=== PATIENT | female | born 1965 | race African-American/Black ===

== ENCOUNTER 2020-02-08 10:26 | Inpatient (IN) ==
--- NOTE | 2020-01-25 17:38 | PAT Medication Instructions ---
Medication Instructions Date of Service January 25, 2020 Home Medications atorvastatin 80 mg PO HS levothyroxine 112 mcg PO QAM metformin 500 mg PO QAM DO NOT take the morning of surgery metformin 500 mg PO QAM Take morning of surgery With a small sip of water, OTHERWISE NOTHING TO EAT OR DRINK AFTER MIDNIGHT: levothyroxine 112 mcg PO QAM Take evening before surgery atorvastatin 80 mg PO HS Other Notes If you have any questions please call us at [phone] or [phone] or [phone] or [phone]
--- NOTE | 2020-01-26 09:35 | Anesthesiology Consultation ---
Date of Service January 26, 2020 Assessment & Plan (1) Encounter for pre-operative examination: COVID Status: As of 01/24 nurse assessment, patient denies travel to endemic area (other than living in [facility]), known exposure/sick contacts, symptoms, or testing for coronavirus. Chart Review Chart Review: Acceptable Risk for Surgery and Patient seen in Pre Admission Testing Teaching & Discussion Instructed NPO after midnight before surgery, except medications with 15 cc of w ater. Medication instructions provided according to the PAT guidelines. History Surgery Operation Date: 02/08/20 12:25 Proposed Procedures p L4-S1 Decompression and Fusion, Spinal Cord Monitoring - Yahir Garnica, Height/Weight Height: 5 ft 1 in Weight: 84.1 kg Allergies Allergy/AdvReac Type Severity Reaction Status Date / Time cashew nut Allergy Severe ANAPHYLAXIS Verified 01/25/20 15:19 tree nut Allergy Severe ANAPHYLAXIS Verified 01/25/20 15:19 latex Allergy Mild hives, Verified 01/25/20 15:19 swelling No Known Drug Allergies Allergy Mild . Verified 01/25/20 15:19 Medications Home Medications Medication Instructions Recorded Confirmed Last Taken atorvastatin 80 mg PO HS 01/25/20 01/25/20 Unknown levothyroxine 112 mcg PO QAM 01/25/20 01/25/20 Unknown metformin 500 mg PO QAM 01/25/20 01/25/20 Unknown Past Medical History Medical History Diabetes mellitus, type 2 Hyperlipidemia Hyperthyroidism Exercise / Class Metabolic Activity II 4-5 Yardwork/Stairs/Walk up hill (Denies CP or SOB with 1 FOS) Past Surgical History Surgical History History of ankle surgery left Hx of carpal tunnel repair right Hx of colonoscopy Hx of esophagogastroduodenoscopy Hx of foot surgery right and left tarsal tunnel release and left bunionectomy Past Anesthesia History No Hx of Anesthesia Complications and No Family Hx of Anesthesia Complications History of PONV No Hx of PONV and No Hx of Motion Sickness Social History Smoking Status: Never smoker Do You Dip or Chew Tobacco: No Hx Alcohol Use: Yes alcohol intake frequency: holidays/special occasions only Hx Substance Use: No substance use type: does not use Review of Systems Pt denies any recent chest pain, shortness of breath, palpitations, cough, fever or URI. Physical Exam Vital Signs BP: 123/83 P: 86bpm SPO2: 98% RA T: 98.3 F R: 16 ENMT Mouth: no dental restorations, no chipped teeth and no loose teeth Thyromental Distance: > or= 3.5 Finger Breadths (4) Mallampati Class: II Neck normal visual inspection; neck extension not limited Respiratory normal respiratory effort Auscultation: lungs clear to auscultation bilaterally Cardiovascular Rate/Rhythm: regular rate and regular rhythm Heart Sounds: no murmur Extremities: no edema Testing Laboratory Results 01/26/20 09:43 01/26/20 09:45 PT 10.7 Seconds (9.0-12.0) 01/26/20 09:43 INR 1.0 (0.9-1.1) 01/26/20 09:43 APTT 32.0 Seconds (21.0-31.0) H 01/26/20 09:43 Urine Color Yellow 01/26/20 09:43 Urine Appearance Clear (Clear) 01/26/20 09:43 Urine pH 5.0 (4.5-7.5) 01/26/20 09:43 Ur Specific [place] 1.024 (1.000-1.030) 01/26/20 09:43 Urine Protein Negative (Negative) 01/26/20 09:43 Urine Glucose (UA) Negative (Negative) 01/26/20 09:43 Urine Ketones Negative (Negative) 01/26/20 09:43 Urine Nitrite Negative (Negative) 01/26/20 09:43 Ur Leukocyte Esterase Negative (Negative) 01/26/20 09:43 Urine WBC (Auto) 1-5 /hpf (0-5) 01/26/20 09:43 Urine RBC (Auto) 0-4 /hpf (0-4) 01/26/20 09:43 U Hyaline Cast (Auto) 0 /lpf (0-5) 01/26/20 09:43 U Epithel Cells (Auto) >30 /lpf (0-5) H 01/26/20 09:43 Urine Bacteria (Auto) Negative (Negative) 01/26/20 09:43 Blood Type O Positive 01/26/20 09:43 Antibody Screen NEGATIVE 01/26/20 09:43 Electrocardiogram Date: 01/26/20 Findings: + NSR @ (78bpm) Chest X-Ray Date: 01/26/20 Findings: + NAD
--- NOTE | 2020-01-26 10:11 | XRay Report ---
XR chest Pre-admission PA/Lat CLINICAL HISTORY: PAT preoperative COMPARISON STUDY: No previous studies for comparison. FINDINGS: The bones soft tissues and hemidiaphragms are normal. The cardiomediastinal silhouette is n ormal. The lungs are clear. The pulmonary vasculature is normal. IMPRESSION: Negative chest. ACT 112: Negative or not required by law. The above report was generated using voice recognition software. It may contain grammatical, syntax or spelling errors. Electronically signed by: Cuco Fay M.D. 01/26/2020 10:09 AM
[2020-01-26 10:33] LABS: Basophils # (auto) 0.02 K/uL (0-0.2); Basophils % (auto) 0.4 %; Eosinophils # (auto) 0.16 K/uL (0-0.5); Eosinophils % (auto) 2.8 %; Hemoglobin 13.8 g/dL (12.0-16.0); Immature Granulocytes # (auto) 0.01 K/uL (0.00-0.02); Immature Granulocytes % (auto) 0.2 %; Lymphocytes # (auto) 2.39 K/uL (1.2-3.4); Mean Corpuscular Hemoglobin 31.2 pg (25-34); Mean Corpuscular Hgb Conc 32.1 g/dL (32-36); Mean Corpuscular Volume 97.3 fL (80-100); Mean Platelet Volume 9.9 fL (7.4-10.4); Monocytes # (auto) 0.36 K/uL (0.11-0.59); Monocytes % (auto) 6.3 %; Neutrophils # (auto) 2.75 K/uL (1.4-6.5); Neutrophils % (auto) 48.3 %; Platelet Count 297 K/uL (130-400); RDW Standard Deviation 49.7 fL (36.4-46.3); Red Blood Count 4.42 M/uL (4.2-5.4); White Blood Count 5.69 K/uL (4.8-10.8)
[2020-01-26 10:38] LABS: BUN Creatinine Ratio 21.2 (10-20); Calcium 9.3 mg/dl (8.5-10.1); Creatinine Clr Calc Pharmacy 76.3 ml/min; Est GFR (African American) 94.1; Est GFR (Non-African American) 81.2; Potassium 4.2 mmol/L (3.5-5.1)
[2020-01-26 10:45] LABS: Partial Thromboplastin Ratio 1.1; Prothrombin Time 10.7 Seconds (9.0-12.0)
[2020-01-26 10:50] LABS: Appearance Urine Clear (Clear); Bacteria Urine Automated Negative (Negative); Bilirubin Urine Negative (Negative); Blood Urine Trace (Negative); Cast Urine Automated 0 /lpf (0-5); Color Urine Yellow; Epithelial Cell Urine Auto >30 /lpf (0-5); Glucose Urine UA Negative (Negative); Ketones Urine Negative (Negative); Leukocyte Esterase Urine Negative (Negative); Nitrite Urine Negative (Negative); Protein Urine Negative (Negative); RBC Urine Automated 0-4 /hpf (0-4); Specific Gravity Urine 1.024 (1.000-1.030); Urobilinogen Urine Negative (Negative)
--- NOTE | 2020-01-26 12:40 | Electrocardiogram Report ---
Test Reason : Blood Pressure : / mmHG Vent. Rate : 078 BPM Atrial Rate : 078 BPM P-R Int : 160 ms QRS Dur : 070 ms QT Int : 388 ms P-R-T Axes : 070 072 029 degrees QTc Int : 442 ms Normal sinus rhythm Normal ECG When compared with ECG of 07-JAN-2015 15:03, No significant change was found Confirmed by Pelon Persaud ([id number]) on 01/26/2020 12:40:00 PM Referred By: Yahir Garnica Confirmed By:Pelon Persaud
[~2020-02-08 10:26] MED LIST: ACETAMINOPHEN 500 MG TAB PO SCH; CEFAZOLIN 2000MG 2,000 MG/15 ML SYR IV SCH; CeleBREX 200 MG CAP PO SCH; GABAPENTIN 600 MG DOSE PO SCH; LR 15ML/HR IV SCH; SODIUM CHLORIDE 0.9% 250 ML IV PRN
[2020-02-08] MEDS ORDERED: ONDANSETRON INJ 2 MG/ML 2 ML VIAL IV PRN ×3 (11:06→16:53)
[2020-02-08] MEDS ORDERED: ePHEDrine sulfate 50 MG/ML AMP IV PRN ×2 (11:06→11:54)
[2020-02-08] MEDS ORDERED: ATROPINE SULFATE 0.1 MG/ML 10ML SYR IV PRN ×2 (11:06→11:54)
[2020-02-08] MEDS ORDERED: NEOSTIGMINE METHYLSULFATE 5 MG/5 ML SYR ONE (11:29)
[2020-02-08] MEDS ORDERED: fentaNYL citrate 100 MCG/2 ML VIAL ONE (11:29)
[2020-02-08] MEDS ORDERED: MIDAZOLAM HCL 1 MG/ML 2ML VIAL ONE (11:29)
[2020-02-08] MEDS ORDERED: LIDOCAINE HCL 2% 2 ML VIAL/AMP(20MG/ML) INFIL ONE (11:29)
[2020-02-08] MEDS ORDERED: ONDANSETRON INJ 2 MG/ML 2 ML VIAL ONE (11:29)
[2020-02-08] MEDS ORDERED: GLYCOPYRROLATE 0.2 MG/ML VIAL ONE (11:29)
[2020-02-08] MEDS ORDERED: PROPOFOL IV EMULSION 10 MG/ML 20 ML VIAL IV ONE (11:29)
[2020-02-08] MEDS ORDERED: DEXAMETHASONE SOD INJ 4 MG/ML VIAL ONE (11:29)
[2020-02-08] MEDS ORDERED: ROCURONIUM BROMIDE 10 MG/ML 5 ML VIAL IV ONE (11:36)
[2020-02-08] MEDS ORDERED: HYDROmorphone INJ 1 MG/ML SYRINGE IV PRN ×2 (11:54→16:53)
[2020-02-08] MEDS ORDERED: fentaNYL citrate 100 MCG/2 ML VIAL IV PRN (11:54)
--- NOTE | 2020-02-08 12:19 | History & Physical Bridge Note ---
Date of Service February 08, 2020 History & Physical Bridge Note I have examined the patient, reviewed the History & Physical and in the interval since the performance of the History & Physical I have noted the following changes of clinical significance: no changes noted
--- NOTE | 2020-02-08 12:20 | History & Physical Report ---
Date of Service February 08, 2020 Assessment & Plan (1) Neurogenic claudication due to lumbar spinal stenosis: L4-S1 decompression fusion Present on Admission?: Yes History of Present Illness Chief Complaint: Back and bilateral leg pain Primary Care Provider: Shanon Marin This is a 54-year-old female that presents with chronic persistent back and bilateral leg pain. After failing extensive course of nonoperative care she is here for surgical intervention. Allergies Allergy/AdvReac Type Severity Reaction Status Date / Time cashew nut Allergy Severe ANAPHYLAXIS Verified 02/08/20 10:55 tree nut Allergy Severe ANAPHYLAXIS Verified 02/08/20 10:55 latex Allergy Mild hives, Verified 02/08/20 10:55 swelling No Known Drug Allergies Allergy Mild . Verified 02/08/20 10:55 Home Medications Home Medications Medication Instructions Recorded Confirmed Type atorvastatin 80 mg PO HS 01/25/20 02/08/20 History levothyroxine 112 mcg PO QAM 01/25/20 02/08/20 History metformin 500 mg PO QAM 01/25/20 02/08/20 History Past Med/Surg History Medical History Diabetes mellitus, type 2 Hyperlipidemia Hyperthyroidism Surgical History History of ankle surgery left Hx of carpal tunnel repair right Hx of colonoscopy Hx of esophagogastroduodenoscopy Hx of foot surgery right and left tarsal tunnel release and left bunionectomy Social History Preferred Language: Moroccan 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 Heart regular rate and rhythm. Lungs clear to auscultation. Results & Data Vital Signs (Past 12 Hours) Vital Signs Temp Pulse Resp BP Pulse Ox 02/08/20 10:52 37 C 76 20 120/74 98
[2020-02-08] MEDS ORDERED: BUPIVACAINE 0.5 % 5 MG/1 ML MPF 30ML VIAL ONE (12:37)
[2020-02-08] MEDS ORDERED: EpINEphrine HCL INJ 1 MG/ML 1ML SYRINGE ONE (12:38)
[2020-02-08] MEDS ORDERED: BACITRACIN INJ 50,000 UNIT VIAL ONE (12:38)
[2020-02-08] MEDS ORDERED: FLOSEAL HEMOSTATIC MATRIX 10ML TOP ONE (13:39)
[2020-02-08] MEDS ORDERED: BUPIVACAINE/EPINEPHRINE 0.5% MPF 1:200,000 10 ML VIAL INJ PRN (13:40)
[2020-02-08] MEDS ORDERED: BACITRACIN INJ 50,000 UNIT VIAL IR ONE (14:37)
--- NOTE | 2020-02-08 14:45 | Operative Report ---
Post Operative Report Pre & Post Diagnosis Operation Date: 02/08/20 12:05 Pre-Op Diagnosis: Lumbar Spinal Stenosis with Neurogenic Claudication Post-Op Diagnosis: Lumbar Spinal Stenosis with Neurogenic Claudication I identified the patient and participated in the time-out.: Yes Procedure Operation Date: 02/08/20 12:05 Actual Procedures #1 lumbar decompression with bilateral medial facetectomies and foraminotomies L3-4, L4-5 L5-S1. #2 posterior spinal fusion L4-5 L5-S1. #3 placement posterior instrumentation L4-5 L5-S1. #4 placement of locally harvested morselized autograft in the posterior lateral gutters. #5 placement infuse collagen sponge, master graft in the posterior lateral gutters. Surgeon Yahir Garnica, Waxing Machine Operator Helper Jami Connelly Estimated Blood Loss 75 Findings See Below The patient is 5 foot 1 inches tall weighing over 82 kg with a BMI in excess of 34. The patient's body habitus did add increased technical difficulty requiring her deepest retractors and longus instruments in order to perform her procedure. This added at least 40% increase to the operative time. Specimens None Indications This is a 54-year-old female who presents with above-mentioned diagnosis after failing extensive course of nonoperative care is here for surgical intervention. Description of Procedure Patient was met with identified informed consent obtained. Patient was then taken to the operative suite underwent intubation placed in the prone position the [place] table on top of the Sal frame. All bony prominences well-padded eyes inspected to ensure no external pressure placed upon them. This point the lumbar spine was prepped and draped in normal sterile fashion. Sharp dissection with the assistance of Bovie cautery was performed down to and exposing the lamina and transverse processes of L for L5 and the sacral ala bilaterally. Fro m a caudal cephalad fashion complete laminectomy of L5 L4 and partial laminectomy of L3 was performed including bilateral medial facetectomies and foraminotomies to address all stenosis and address all epidural lipomatosis. After this complete pedicle screws were placed in L4-L5 and S1 levels bilaterally with assistance of fluoroscopy and appropriate size zully locked into position. The transverse processes of L4-L5 and the sacral ala were then burred to subcortical bleeding bone. Infuse collagen sponge master graft local autograft was placed in the posterior lateral gutters. 15 round YECENIA drain inserted. The incision was then closed with 1 Vicryl in the fascia 2-0 Vicryl subcutaneously and 4 Monocryl for final skin closure. Steri-Strip sterile dressings placed. Patient will continue to PACU stable condition. Please note spinal cord monitoring was utilized that the procedure no changes noted. Lastly Jami Connelly was present at the entire procedure involved the patient positioning complex portions of the surgery and final skin closure. I attest to the content of the Intraoperative Record and any orders documented therein. Any exceptions are noted below.
--- NOTE | 2020-02-08 14:48 | Fluoroscopy Report ---
FL lumbar spine 2-3V HISTORY: 54 years-old Female L4-S1 DECOMP/FUSION COMPARISON: None TECHNIQUE: 2 spot fluoroscopic images of the lumbar spine were obtained utilizing 28.0 seconds fluoro scopy time FINDINGS: Laminectomy with posterior interbody zully and screw fusion is noted at the L4-S1 levels. Alignment shanti ears satisfactory. The hardware appears intact. No acute fracture. Multilevel spondylitic spurring. IMPRESSION: Fluoroscopic assistance as above. Please see operative report for further details. ACT 112: Negative or not required by law. The above report was generated using voice recognition software. It may contain grammatical, syntax o r spelling errors. Electronically signed by: Leonardo Landis M.D. 02/08/2020 2:47 PM
[2020-02-08] MEDS ORDERED: ePHEDrine sulfate 50 MG/ML SYR ONE (14:49)
[2020-02-08] MEDS ORDERED: PHENYLEPHRINE 100MCG/ML 5ML SYR ONE (14:49)
[2020-02-08] MEDS: fentaNYL citrate 100 MCG/2 ML VIAL IV PRN ×4 (15:29→15:52)
[2020-02-08] MEDS: HYDROmorphone INJ 1 MG/ML SYRINGE IV PRN ×4 (16:01→16:19)
--- NOTE | 2020-02-08 16:29 | Anesthesiology Progress Note ---
Date of Service February 08, 2020 Anesthesia Post Procedure Vital Signs Vital Signs: Temp Pulse Pulse Resp BP Pulse Ox 02/08/20 16:15 81 13 123/61 100 02/08/20 16:05 77 15 134/67 100 02/08/20 15:55 70 14 124/68 100 02/08/20 15:45 75 15 118/63 100 02/08/20 15:35 79 13 133/68 100 02/08/20 15:25 65 12 109/56 L 100 02/08/20 15:15 70 16 119/61 100 02/08/20 15:08 36.0 C L 62 20 109/54 L 100 02/08/20 10:52 37 C 76 20 120/74 98 Pain Intensity Back: Pain Intensity: 5 Transfer of Care Handoff Completed per policy Notes Mental Status: alert / awake / arousable and participated in evaluation Patient Amnestic to Procedure: Yes Nausea / Vomiting: adequately controlled Pain: adequately controlled Airway Patency, RR, SpO2: stable & adequate BP & HR: stable & adequate Hydration State: stable & adequate Anesthetic Complications: no major complications apparent and Pt Satisfied with anesthetic care
[2020-02-08] MEDS ORDERED: ACETAMINOPHEN 500 MG TAB PO PRN (16:53)
[2020-02-08] MEDS ORDERED: DO NOT ADMINISTER PNEUMOCOCCAL VACCINE PRN (16:53)
[2020-02-08] MEDS ORDERED: bisacodyL 10 MG SUPP PR PRN (16:53)
[2020-02-08] MEDS ORDERED: DO NOT ADMINISTER FLU VACCINE PRN (16:53)
[2020-02-08] MEDS ORDERED: ACETAMINOPHEN 1,000 MG/100 ML VIAL IV PRN (16:53)
[2020-02-08] MEDS ORDERED: OXYCODONE HCL IR 5 MG TAB (IMMEDIATE RELEASE) PO PRN (16:53)
[2020-02-08] MEDS ORDERED: ALUMINUM/MAGNESIUM SUSP 30 ML UDC PO PRN (16:53)
[2020-02-08] MEDS ORDERED: LORazepam 0.5 MG/1 ML VIAL IV PRN (16:53)
[2020-02-08] MEDS ORDERED: NALOXONE HCL 0.4 MG/1 ML VIAL/CARP IV PRN (16:53)
[2020-02-08] MEDS ORDERED: PROMETHAZINE HCL 12.5 MG in SODIUM CHLORIDE 0.9% 50 ML IV PRN (16:53)
[2020-02-08] MEDS ORDERED: METOCLOPRAMIDE HCL INJ 5 MG/ML 2 ML VIAL IV PRN (16:53)
[2020-02-08] MEDS ORDERED: LORazepam 0.5 MG TAB PO PRN (16:53)
[2020-02-08] MEDS ORDERED: MAGNESIUM HYDROXIDE SUSP 30 ML UDC PO PRN (16:53)
[2020-02-08] MEDS ORDERED: ONDANSETRON 4 MG OD TAB PO PRN (16:53)
[2020-02-08] MEDS ORDERED: FAMOTIDINE 20 MG TAB PO PRN (16:53)
[2020-02-08] MEDS ORDERED: SOD PHOSPHATE/SOD BIPHOSPHATE ENEMA 132 ML BTL PR PRN (16:53)
[2020-02-08] MEDS ORDERED: HYDROmorphone INJ 0.5 MG/0.5 ML SYR IV PRN (16:53)
[2020-02-08] MEDS ORDERED: PHARMACY GLYCEMIC MGMT CONSULT PRN (17:27)
[2020-02-08] MEDS ORDERED: DEXTROSE 50% 50 ML SYRINGE IV PRN (17:30)
[2020-02-08] MEDS ORDERED: GLUCAGON FOR INJ 1 MG VIAL IM PRN (17:30)
[2020-02-08] MEDS ORDERED: CARBOHYDRATES FOR HYPOGLYCEMIA PO PRN (17:30)
[2020-02-08] MEDS ORDERED: GLUCOSE 10 TABS/TUBE PO PRN (17:30)
[2020-02-08] MEDS ORDERED: INSULIN GLARGINE SOLOSTAR 100 UNITS/ML 3 ML PEN SC ONE (17:30)
[2020-02-08] MEDS ORDERED: GLUCOSE 40% GEL 15 GM TUBE PO PRN (17:30)
[2020-02-08] MEDS: INSULIN ASPART 100 UNITS/ML 3 ML PEN SC SCH ×2 (18:42→21:06)
[2020-02-08] MEDS: KETOROLAC TROMETHAMINE 15 MG/ML VIAL IV SCH ×2 (18:46→23:25)
[2020-02-08] MEDS: CEFAZOLIN 2000MG 2,000 MG/15 ML SYR IV SCH (21:04)
[2020-02-08] MEDS: ATORVASTATIN 40 MG TAB PO SCH (21:04)
[2020-02-08] MEDS: DOCUSATE SODIUM/SENNA 50/8.6MG TAB PO SCH (21:05)
[2020-02-08] MEDS: SODIUM CHLORIDE 0.9% 1000ML 1,000 ML IV SCH ×2 (21:18→21:19)
[2020-02-09] MEDS: SODIUM CHLORIDE 0.9% 1000ML 1,000 ML IV SCH (04:02)
[2020-02-09] MEDS: CEFAZOLIN 2000MG 2,000 MG/15 ML SYR IV SCH (04:09)
[2020-02-09 05:43] LABS: Hematocrit (blood only) 37.7 % (37-47); Hemoglobin 12.1 g/dL (12.0-16.0); Immature Granulocytes # (auto) 0.02 K/uL (0.00-0.02); Immature Granulocytes % (auto) 0.2 %; Lymphocytes # (auto) 1.24 K/uL (1.2-3.4); Lymphocytes % (auto) 10.4 %; Mean Corpuscular Hemoglobin 31.1 pg (25-34); Mean Corpuscular Hgb Conc 32.1 g/dL (32-36); Mean Corpuscular Volume 96.9 fL (80-100); Mean Platelet Volume 9.7 fL (7.4-10.4); Monocytes # (auto) 0.66 K/uL (0.11-0.59); Monocytes % (auto) 5.6 %; Neutrophils # (auto) 9.97 K/uL (1.4-6.5); Neutrophils % (auto) 83.8 %; Platelet Count 278 K/uL (130-400); RDW Coefficient of Variation 13.6 % (11.5-14.5); RDW Standard Deviation 48.6 fL (36.4-46.3); Red Blood Count 3.89 M/uL (4.2-5.4); White Blood Count 11.89 K/uL (4.8-10.8)
[2020-02-09] MEDS: LEVOTHYROXINE SODIUM 112 MCG TABLET PO SCH (05:56)
[2020-02-09] MEDS: POLYETHYLENE (MIRALAX) 17 GM PACK PO SCH ×4 (05:56→23:42)
[2020-02-09] MEDS: KETOROLAC TROMETHAMINE 15 MG/ML VIAL IV SCH ×2 (05:56→11:49)
[2020-02-09 06:17] LABS: BUN Creatinine Ratio 14.9 (10-20); Calcium 8.4 mg/dl (8.5-10.1); Creatinine Clr Calc Pharmacy 75.5 ml/min; Est GFR (African American) 94.1; Est GFR (Non-African American) 81.2
[2020-02-09 06:49] LABS: Estimated Average Glucose 140 mg/dl; Hemoglobin A1C 6.5 % (4.5-5.6)
--- NOTE | 2020-02-09 08:16 | Orthopedic Progress Note ---
Date of Service February 09, 2020 Assessment & Plan (1) Neurogenic claudication due to lumbar spinal stenosis: This time initiate physical therapy monitor YECENIA output hopefully discharge home in the next few days. Present on Admission?: Yes Admission and Anticipated Discharge Date Admission Date: February 08, 2020 Subjective Back pain controlled leg symptoms markedly improved. Physical Exam Physical Exam: Patient is good strength testing appears comfortable. Results & Data ([facility]) Vital Signs (Past 12 Hours) Vital Signs Temp Pulse Resp BP Pulse Ox 02/09/20 07:21 37.5 C 81 17 123/67 97 02/09/20 03:54 37.2 C 65 16 119/74 94 02/08/20 23:18 37.1 C 70 16 125/72 94
[2020-02-09] MEDS: INSULIN ASPART 100 UNITS/ML 3 ML PEN SC SCH ×4 (08:38→21:26)
[2020-02-09] MEDS: DEXAMETHASONE SOD PHOSPHATE 8 MG in SYRINGE 0 ML IV SCH (08:51)
[2020-02-09] MEDS ORDERED: INSULIN GLARGINE SOLOSTAR 100 UNITS/ML 3 ML PEN SC SCH (09:00)
[2020-02-09] MEDS ORDERED: INSULIN GLARGINE SOLOSTAR 100 UNITS/ML 3 ML PEN SC ONE (09:00)
[2020-02-09] MEDS ORDERED: DEXAMETHASONE SOD PHOSPHATE 8 MG in SYRINGE 0 ML IV SCH (09:00)
--- NOTE | 2020-02-09 13:14 | Pharmacy Report ---
Glycemic Control Consultation - Date of Service February 09, 2020 - Scope Scope: Glycemic Pharmacist consulted for glycemic control and to write orders per [facility] inpatient glycemic control protocol. - Objective Weight: 82.5 kg Accuchecks BSG (last 24hrs): 02/08/20 02/08/20 02/08/20 15:10 17:25 21:05 Glucose POC Glucose 118 H 142 H 136 H 02/09/20 02/09/20 02/09/20 05:11 08:16 11:54 Glucose 146 H POC Glucose 112 H 141 H Laboratory Data (last 24hrs): 02/09/20 05:11 Potassium 4.0 Carbon Dioxide 27 Anion Gap 7.0 Creatinine 0.81 Est Cr Clr Drug Dosing 75.5 HbA1c: Hemoglobin A1c 6.5 % (4.5-5.6) H 02/09/20 05:11 - Recent Pertinent Medications Outpatient Anti-diabetic Regimen: * metformin 500 mg PO qAM * A1c = 6.5 % 02/09/20 The patient is currently receiving: * Basal insulin: Lantus 15 units SQ x 1 * Correctional Insulin: Novolog Correction per scale ACHS Goal Range: Low 110 mg/dL - High 140 mg/dL Correction Factor: 30 mg/dL/unit * Prandial insulin: Per carb ratio of 1 unit per 9 grams CHO consumed * Oral Agents: Risk Factors for Insulin Resistance: * Steroids: dexamethasone 8 mg IV intraop * Recent Surgery: POD 1 * Diet: T2DM - Assessment & Plan Assessment & Plan: ASSESSMENT: * Ms Ralph is a 54 y/o F with a PMH of well controlled T2DM on one oral medication. Her BSG on admission yesterday was 96 mg/dL. She was given 15 units of Lantus SQ x 1 plus Novolog weight-based stress of 2. BSG yesterday was [phone] mg/dL with a fasting today of 112 mg/dL. This is excellent control. * Patient is receiving dexamethasone 8 mg IV daily now. Provide additional Lantus 15 units (as this worked well yesterday). Tighten Novolog slightly. * Hold metformin until steroids d/c'ed. * ADA & AACE recommend a goal blood sugar range 140-180 mg/dl for the majority of critically ill & non-critically ill patients. However, more stringent targets may be selected in individual cases. Will utilize more stringent goal of 110-140mg/dl based on patient age & comorbidities. Additionally, tighter glycemic control is warranted to facilitate wound/infection healing. PLAN FOR INPATIENT GLYCEMIC CONTROL: * Holding outpatient oral diabetes medications * Basal insulin * Lantus 15 units SQ daily while on dexamethasone IV * Bolus insulin * NovoLog per scale ACHS or Q6hrs while NPO * Goal Range: Low 110 mg/dL - High 140 mg/dL * Correction Factor: 25 mg/dL/unit * Nutritional / Prandial insulin per carb ratio of 1 unit per 7 grams CHO consumed OUTPATIENT RECOMMENDATIONS * CONTINUE CURRENT REGIMEN HBA1C WITHIN GOAL Thank you.
[2020-02-09] MEDS: DOCUSATE SODIUM/SENNA 50/8.6MG TAB PO SCH (21:31)
[2020-02-09] MEDS: ATORVASTATIN 40 MG TAB PO SCH (21:32)
[2020-02-09] MEDS: TRAMADOL HCL 50 MG TABLET PO PRN (23:42)
[2020-02-10] MEDS: LEVOTHYROXINE SODIUM 112 MCG TABLET PO SCH (05:34)
[2020-02-10] MEDS: POLYETHYLENE (MIRALAX) 17 GM PACK PO SCH (05:34)
[2020-02-10] MEDS: DEXAMETHASONE SOD PHOSPHATE 8 MG in SYRINGE 0 ML IV SCH (08:43)
[2020-02-10] MEDS: INSULIN ASPART 100 UNITS/ML 3 ML PEN SC SCH ×2 (08:45→13:20)
--- NOTE | 2020-02-10 10:18 | Discharge Summary ---
Date of Service February 10, 2020 Admission HPI Per Admitting Provider This is a 54-year-old female that presents with chronic persistent back and bilateral leg pain. After failing extensive course of nonoperative care she is here for surgical intervention. Principal Diagnosis Lumbar spinal stenosis with neurogenic claudication Discharge Data Allergies Allergy/AdvReac Type Severity Reaction Status Date / Time cashew nut Allergy Severe ANAPHYLAXIS Verified 02/08/20 10:55 tree nut Allergy Severe ANAPHYLAXIS Verified 02/08/20 10:55 latex Allergy Mild hives, Verified 02/08/20 10:55 swelling No Known Drug Allergies Allergy Mild . Verified 02/08/20 10:55 Consultations 02/08/20 16:53 Consult Case Management - Discharge Planning Routine Procedures Performed Operation Date: 02/08/20 12:05 Actual Procedures p L4-S1 Decompression and Fusion, Spinal Cord Monitoring(Not Applicable) - Yahir Garnica DO Ordered Studies 02/08/20 12:05 FL fluoroscopy <1hr Routine FL lumbar spine 2-3V Routine Hospital Course (1) Neurogenic claudication due to lumbar spinal stenosis: Patient underwent lumbar decompression fusion tolerated this well was taken to the orthopedic floor possibly. Postop day 1 she was up and ambulating leg pain improved. She rested postop day 2. YECENIA drain decreasing probably. Pain well controlled. Neurologically intact. Subsequent discharge home. Discharge orders and instructions from the chart for further review. Total Time Total Time Spent Total Time Spent (In Minutes): 20 minutes Discharge Plan Discharge Items Patient Disposition: Home - Self-Care Reason For Visit: LUMBAR SPINAL STENOSIS W NEUROGENIC CLAUDICATION Discharge Diagnosis: Lumbar spinal stenosis with neurogenic claudication Activity: As commented below Non-emergency contact: Primary Care Provider Call non-emergency contact if: you have any medication questions Follow-up/Referrals: Shanon Marin M.D. [Primary Care Provider] - Diet: Regular Addtl Attending Provider Instructions: ACTIVITY RECOMMENDATIONS: SELF CARE INSTRUCTIONS AFTER THORACIC/LUMBAR FUSIONS 1. You may walk to your tolerance. It is good exercise for your legs and back. Expect some back and intermittent leg aches and pains. 2. You may perform "counter-top" level activities (make a sandwich, clement with a project, etc.). 3. No bending or lifting of more than 10 pounds or back twisting of any nature (roll like a log when turning in bed). 4. You may ride in a car for 20-30 minutes at a time. No driving until after your first visit with your doctor. 5. Frequent changes of position and restricting sitting to 30 minutes at a time will help limit the amount of back spasms and stiffness you may experience. 6. You may discontinue the use of ambulatory aids (cane, crutches, etc.) once your strength and confidence allow. 7. You may program director/morning show host the shower and let water strike your incision when you arrive home at least once daily. Do not take a tub bath, sit in a hot tub or go into a swimming pool until after your first recheck in the office. SPECIAL CARE INSTRUCTIONS: VERY IMPORTANT TO READ AND REVIEW A. Your surgical incision has been closed with a cosmetic suture under the skin that will dissolve in about 6 weeks. In 14 days, you can use a pair of clean scissors and cut the suture that is left outside of the skin at the ends of your incision. 1. The small skin tapes can be removed 7 days after surgery if they have not fallen off by that point. 2. You may keep the wound open to air as much as possible to promote healing after post-op day number 5 unless told otherwise by your doctor. 3. If you think the wound looks like it is becoming infected (redness or worsening drainage) and/or you are experiencing fever, chill or worsening back pain and muscle spasms, contact the office so that we may evaluate you as soon as possible. B. Complications are uncommon, but please contact us if you have any signs or symptoms of: 1. wound infection (fever higher than 102.5 degrees F, redness, separation of wound, drainage, or increasing pain from the incision) 2. blood clots in legs (pain, swelling, redness and warmth in legs) 3. urinary tract infection (fever higher than 102.5 degrees F, burning upon urination or increased frequency of urination) 4. nerve problems (inability to walk on your toes or heels, numbness, loss of bowel or bladder control) 5. any other symptoms that concern you C. Please call the office at if you have any concerns or questions about your operation or recovery. D. No smoking! Smoking drastically decreases the chance of a solid fusion. E. Do not take any anti-inflammatory medications (Indocin, Advil, Motrin, Aspirin, Naprosyn, etc.) as these may inhibit the chance of a solid fusion. Tylenol is okay to take for pain. MANAGING PAIN AFTER SPINAL SURGERY 1. Narcotic medication is intended for short-term use and will be provided for surgical pain. Surgical pain usually lasts for a period of 4-6 weeks. Narcotic medication includes Percocet, Vicodin, Darvocet, Tylenol #3 or Lortab. 2. Longer-term pain is more appropriately treated with non-narcotic medication such as Tylenol ES. 3. Muscle spasm is not appropriately treated with narcotics. Muscle relaxers such as Soma, Flexeril or Skelaxin can be used along with Tylenol ES. 4. Remember that we all live with some "aches and pains". This is not unusual or uncommon after an injury or as we get older. a. Back pain is expected and may include muscle spasms for 4 to 6 weeks after surgery. The pain should gradually improve. If the pain worsens for no apparent reason, please contact the office. b. Intermittent leg pain may also be experienced and should not be concerned about unless it worsens for no apparent reason. If so, please contact the office. 5. We will provide appropriate medication within the normal guidelines of their prescribed use. We will also be very cautious and aware of potential abuse and extended duration of patients' medication needs. a. Pain medications are for your comfort and to assist with sleep and rest so that the tissue can heal. They are not provided in order to return to normal activity and should not be used through the day. To do so or worsening pain at night can result from ongoing tissue damage and developm ent of tolerance to the prescribed medicine. 6. Please allow 2-3 days to process refills. Prescriptions will not be mailed but must be picked up at the office. FOLLOW UP VISIT: Keep your scheduled follow-up appointment. Any questions, please call the office at . Pending Studies at Discharge: No Stand-Alone Forms: My [employer], Smoking Cessation Medications and DC Order Prescriptions: New tramadol 50 mg tablet 50 mg PO Q6H PRN (Reason: pain, moderate) Qty: 30 RF: 0 oxycodone 5 mg tablet 5 mg PO Q6H PRN (Reason: pain, severe) Qty: 20 RF: 0 Continued metformin 500 mg Tablet 500 mg PO QAM RF: 0 atorvastatin 80 mg Tablet 80 mg PO HS RF: 0 levothyroxine 112 mcg Tablet 112 mcg PO QAM RF: 0 Discharge Orders: Discharge Order (Routine); Ordered 02/10/20 Ordered By: Yahir Lockett/Other Patient Handouts: Managing Type 2 Diabetes, How to Check Your Blood Sugar Admission Data Admit Date/Time: 02/08/20 16:43 Attending Provider: Yahir Garnica Admit Provider: Yahir Garnica Primary Care Provider: Shanon Marin
[2020-02-10] MEDS: TRAMADOL HCL 50 MG TABLET PO PRN (13:26)
== END 2020-02-10 16:58 | disposition home or self-care (01) | DRG 460 ==
LOC: ASU 10:26 → PAT 10:26 → 3E 16:43